=== PATIENT | male | born 1950 | race Caucasian/White ===

== ENCOUNTER 2019-10-23 08:24 | Day surgery (SDC) | payer MEDICARE ==
[~2019-10-23] VITALS: Ht 177.8 cm; Wt 210.0 kg
[2019-10-23] MEDS ORDERED: ASPI81CH (09:10)
[2019-10-23] MEDS ORDERED: Prinivil10 MG PO (09:11)
[2019-10-23] MEDS ORDERED: AMLO10 PO (09:12)
[2019-10-23] MEDS ORDERED: ATOR80 PO (09:12)
[2019-10-23] MEDS ORDERED: Nitrostat0.3 MG SL (09:13)
[2019-10-23] MEDS ORDERED: OMEP20ER PO (09:13)
--- NOTE | 2019-10-23 10:01 | NUR ---
10/23/19 1001 Maranda Le DISCHARGE INSTRUCTIONS REVIEWED WITH PT AND SPOUSE. PT RESTING COMFORTABLY IN BED WITH CALL LIGHT IN REACH AND AT BEDSIDE.
== END 2019-10-23 12:45 | disposition home or self-care (01) ==
LOC: ORSCSDS 08:24
PROVIDERS: Orthopaedic Surgery
PROC: 0RBJ4ZZ Excision of Right Shoulder Joint, Percutaneous Endoscopic Approach (ICD-10-PCS; principal; 2019-10-23 09:45)
PROC: 0LQ14ZZ Repair Right Shoulder Tendon, Percutaneous Endoscopic Approach (ICD-10-PCS; principal; 2019-10-23 09:45)
PROC: 0LS14ZZ Reposition Right Shoulder Tendon, Percutaneous Endoscopic Approach (ICD-10-PCS; principal; 2019-10-23 09:45)
DX: M75.41 Impingement syndrome of right shoulder (principal); M75.121 Complete rotator cuff tear or rupture of right shoulder, not specified as traumatic; M75.21 Bicipital tendinitis, right shoulder; I10 Essential (primary) hypertension; E78.2 Mixed hyperlipidemia; I25.10 Atherosclerotic heart disease of native coronary artery without angina pectoris; K21.9 Gastro-esophageal reflux disease without esophagitis; Z79.899 Other long term (current) drug therapy; Z79.82 Long term (current) use of aspirin
CPT/HCPCS: C1713; J0171; J0696; J0735; J1100; J1885; J2250; J2405; J2704; J2795; J3010

== ENCOUNTER 2020-01-23 13:39 | Day surgery (SDC) | payer MEDICARE ==
[~2020-01-23] VITALS: Ht 177.8 cm; Wt 80.1 kg
[~2020-01-23 13:39] MED LIST: AMLO10 PO; ASPI81CH; ATOR80 PO; FURO40 PO; Nitrostat0.3 MG SL; OMEP20ER PO; Prinivil10 MG PO
== END 2020-01-23 16:40 | disposition home or self-care (01) ==
LOC: ORSCSDS 13:39
PROVIDERS: Internal Medicine Gastroenterology
PROC: 0DJ08ZZ Inspection of Upper Intestinal Tract, Via Natural or Artificial Opening Endoscopic (ICD-10-PCS; principal; 2020-01-23 15:00)
DX: I85.00 Esophageal varices without bleeding (principal); K76.6 Portal hypertension; K31.89 Other diseases of stomach and duodenum; K74.60 Unspecified cirrhosis of liver; R63.4 Abnormal weight loss; R18.8 Other ascites; R68.81 Early satiety; I10 Essential (primary) hypertension; E78.5 Hyperlipidemia, unspecified; Z95.1 Presence of aortocoronary bypass graft; Z87.891 Personal history of nicotine dependence; Z79.82 Long term (current) use of aspirin; Z79.899 Other long term (current) drug therapy
CPT/HCPCS: J2704; J7120

== ENCOUNTER 2020-11-04 00:31 | Day surgery (SDC) | payer MEDICARE ==
[~2020-11-04 00:31] MED LIST changes: +ALDACTONE100 MG PO; +ATOR20 PO; +CEPH500 PO; +CONSTULOSE10 GM/151; +LACT10SY PO; +NITR.4SL SL; +Norco 5-325 Ta1 EACH PO; +Percocet 5-3251 EACH PO; +Spironolactone100 MG PO
[2020-11-04 15:24] LABS: Albumin, Body Fluid 0.5 g/dL
[2020-11-04] MEDS ORDERED: OMEP20ER PO (15:50)
[2020-11-04] MEDS ORDERED: SPIR50 PO (15:51)
== END 2020-11-04 16:04 | disposition home or self-care (01) ==
LOC: US 00:31 → ATC 00:31 → US 14:00 → ATC 16:04 → US 11-05 10:00
PROVIDERS: Internal Medicine Gastroenterology
DX: R18.8 Other ascites (principal); K74.69 Other cirrhosis of liver; K75.81 Nonalcoholic steatohepatitis (NASH); I85.10 Secondary esophageal varices without bleeding; K76.6 Portal hypertension; K31.89 Other diseases of stomach and duodenum; I25.10 Atherosclerotic heart disease of native coronary artery without angina pectoris; E78.5 Hyperlipidemia, unspecified; I10 Essential (primary) hypertension; I25.2 Old myocardial infarction; Z95.1 Presence of aortocoronary bypass graft; Z95.5 Presence of coronary angioplasty implant and graft; Z79.82 Long term (current) use of aspirin
CPT/HCPCS: 49083; 82042; 87070; 87205; 96365; P9041; P9046

== ENCOUNTER 2020-12-22 08:45 | Emergency (ER) | payer MEDICARE ==
[~2020-12-22] VITALS: Ht 177.8 cm; Wt 79.4 kg
[2020-12-22 09:11] LABS: Source, Urine Clean Catch
[2020-12-22 09:15] LABS: BASOPHILS ABSOLUTE AUTO 0.07 K/mm3 (0.00-0.23); BASOPHILS PERCENT AUTO 1 % (0-2); EOSINOPHILS ABSOLUTE AUTO 0.14 K/mm3 (0.00-0.68); EOSINOPHILS PERCENT AUTO 2 % (0-6); Hematocrit 33.8 % (37.0-53.0); Hemoglobin 11.9 g/dL (13.5-17.5); IMMATURE GRAN ABSOLUTE AUTO 0.04 K/mm3 (0.00-0.10); IMMATURE GRAN PERCENT AUTO 1 % (0-1); LYMPHOCYTES ABSOLUTE AUTO 1.17 K/mm3 (0.84-5.20); LYMPHOCYTES PERCENT AUTO 17 % (21-46); MONOCYTES ABSOLUTE AUTO 0.87 K/mm3 (0.16-1.47); MONOCYTES PERCENT AUTO 12 % (4-13); Mean Corpuscular HGB 34.8 pg (26.0-34.0); Mean Corpuscular HGB Conc 35.2 g/dL (31.5-36.5); Mean Corpuscular Volume 99 fL (80-100); Mean Platelet Volume 8.1 fL (9.1-12.4); NEUTROPHILS ABSOLUTE AUTO 4.76 K/mm3 (1.96-9.15); NEUTROPHILS PERCENT AUTO 68 % (41-73); Platelet Count 188 K/mm3 (150-400); RDW Coefficient Variation 16.3 % (11.7-14.2); RDW Standard Deviation 59.6 fL (35.1-46.3); Red Blood Cell Count 3.42 M/mm3 (4.30-5.90); White Blood Cell Count 7.05 K/mm3 (4.00-11.30)
[2020-12-22 09:17] LABS: Appearance, Urine Clear (Clear); Bilirubin, Urine Neg (Neg); Blood, Urine 5+ (Neg); Color, Urine Yellow (P-Yellow); Glucose Qualitative, Urine Neg (Neg); Ketones, Urine Neg (Neg); Leukocyte Esterase, Urine Neg (Neg); Nitrite, Urine Neg (Neg); Protein, Urine Neg (Neg); Specific Gravity, Urine 1.015 (1.003-1.022); Urobilinogen, Urine 1+ (Normal)
[2020-12-22 09:27] LABS: Bacteria Rare /hpf; Red Blood Cells, Urine TNTC /hpf (0-2); Squamous Epithelial Cells Rare /hpf (Few); White Blood Cells, Urine 0-2 /hpf (0-5)
[2020-12-22 09:28] LABS: Calcium Oxalate Crystals Few /hpf
[2020-12-22 09:35] LABS: Alanine Aminotransfer (ALT/SGP 42 U/L (12-78); Albumin, Blood 2.1 g/dL (3.4-5.0); Albumin/Globulin Ratio 0.4 (0.8-1.8); Alk Phos 241 U/L (50-136); Anion Gap 10 mmol/L (6-16); Aspartate Aminotrans (AST/SGOT 59 U/L (12-37); Blood Urea Nitrogen 18 mg/dL (8-24); Bun/Creatinine Ratio 15.4 (12.0-20.0); CO2, Blood 20 mmol/L (21-32); Calcium, Blood 7.9 mg/dL (8.5-10.1); Chloride, Blood 97 mmol/L (98-108); Creatinine, Blood 1.17 mg/dL (0.60-1.20); Globulin, Blood 4.7 g/dL (2.2-4.0); Glomerular Filtration Rate >60 (60-); Glucose, Blood 116 mg/dL (70-99); Potassium, Blood 3.5 mmol/L (3.5-5.5); Sodium, Blood 127 mmol/L (136-145); Total Protein, Blood 6.8 g/dL (6.4-8.2)
[2020-12-22 12:56] LABS: International Normalized Ratio 1.33
== END 2020-12-22 11:46 | disposition home or self-care (01) ==
LOC: ER 08:45
PROVIDERS: Emergency Medicine
DX: R31.9 Hematuria, unspecified (principal); K74.60 Unspecified cirrhosis of liver
CPT/HCPCS: 36415; 74176; 80053; 81001; 83690; 85025; 85610; 99284-25

== ENCOUNTER 2020-12-31 14:47 | Day surgery (SDC) | payer MEDICARE | END 2020-12-31 16:45 | disposition home or self-care (01) | LOC: ATC 14:47 → US 01-06 14:00 | DX: K74.69 Other cirrhosis of liver (principal); R18.8 Other ascites; I11.9 Hypertensive heart disease without heart failure; I25.2 Old myocardial infarction; K76.6 Portal hypertension; K31.89 Other diseases of stomach and duodenum; I85.10 Secondary esophageal varices without bleeding; E78.5 Hyperlipidemia, unspecified; K59.09 Other constipation; Z88.6 Allergy status to analgesic agent; Z86.010 Personal history of colon polyps | CPT/HCPCS: 49083; 96365; 96366; P9041; P9046 ==

== ENCOUNTER 2021-01-16 10:32 | Inpatient (IN) | payer MEDICARE ==
[~2021-01-16] VITALS: Ht 180.3 cm; Wt 78.2 kg
[~2021-01-16 10:32] MED LIST changes: +SPIR50 PO
[2021-01-16 11:08] LABS: BASOPHILS ABSOLUTE AUTO 0.03 K/mm3 (0.00-0.23); BASOPHILS PERCENT AUTO 0 % (0-2); Hematocrit 32.4 % (37.0-53.0); Hemoglobin 11.6 g/dL (13.5-17.5); LYMPHOCYTES ABSOLUTE AUTO 0.71 K/mm3 (0.84-5.20); LYMPHOCYTES PERCENT AUTO 5 % (21-46); MONOCYTES ABSOLUTE AUTO 0.68 K/mm3 (0.16-1.47); MONOCYTES PERCENT AUTO 5 % (4-13); Mean Corpuscular HGB 35.8 pg (26.0-34.0); Mean Corpuscular HGB Conc 35.8 g/dL (31.5-36.5); Mean Corpuscular Volume 100 fL (80-100); Mean Platelet Volume 8.9 fL (9.1-12.4); Platelet Count 153 K/mm3 (150-400); RDW Coefficient Variation 16.9 % (11.7-14.2); RDW Standard Deviation 61.7 fL (35.1-46.3); Red Blood Cell Count 3.24 M/mm3 (4.30-5.90)
[2021-01-16 11:10] LABS: EOSINOPHILS ABSOLUTE AUTO 0.03 K/mm3 (0.00-0.68); EOSINOPHILS PERCENT AUTO 0 % (0-6); IMMATURE GRAN ABSOLUTE AUTO 0.14 K/mm3 (0.00-0.10); IMMATURE GRAN PERCENT AUTO 1 % (0-1); NEUTROPHILS ABSOLUTE AUTO 12.91 K/mm3 (1.96-9.15); NEUTROPHILS PERCENT AUTO 89 % (41-73)
[2021-01-16 11:19] LABS: Albumin, Blood 2.1 g/dL (3.4-5.0); Albumin/Globulin Ratio 0.5 (0.8-1.8); Bilirubin, Total 5.1 mg/dL (0.1-1.0); Calcium, Blood 8.6 mg/dL (8.5-10.1); Creatinine, Blood 1.54 mg/dL (0.60-1.20); Globulin, Blood 4.4 g/dL (2.2-4.0); Potassium, Blood 4.4 mmol/L (3.5-5.5); Total Protein, Blood 6.5 g/dL (6.4-8.2)
[2021-01-16 12:38] LABS: Automated BF WBC Count 1.262 K/mm3 (0-999); Body Fluid WBC Count 1262 /mm3 (0-999)
[2021-01-16 13:07] LABS: RBC Count, Body Fluid 186 /mm3 (0-0)
[2021-01-16 13:14] LABS: Appearance, Body Fluid Hazy (Clear); Color, Body Fluid Yellow (None-Yellow); Total Cell Count, Body Fluid 100
[2021-01-16 13:47] LABS: Troponin I 0.03 ng/mL (0.000-0.040)
[2021-01-16 13:50] LABS: Thyroid Stimulating Hormone 2.2 uIU/mL (0.360-4.800)
[2021-01-16 14:00] LABS: Source, Urine Voided
[2021-01-16] MEDS ORDERED: ATOR40TA PO (14:10)
[2021-01-16 14:30] LABS: Appearance, Urine Clear (Clear); Blood, Urine Neg (Neg); Color, Urine Amber (P-Yellow); Glucose Qualitative, Urine Neg (Neg); Ketones, Urine Neg (Neg); Leukocyte Esterase, Urine 1+ (Neg); Nitrite, Urine Neg (Neg); Protein, Urine Neg (Neg); Urobilinogen, Urine 1+ (Normal)
[2021-01-16 14:43] LABS: Bilirubin, Urine 1+ (Neg)
[2021-01-16 14:44] LABS: Red Blood Cells, Urine 0-2 /hpf (0-2)
[2021-01-16 14:45] LABS: Bacteria Rare /hpf; Mucus Light (0-Heavy); Squamous Epithelial Cells Rare /hpf (Few)
[2021-01-16 15:22] LABS: International Normalized Ratio 1.56; Prothrombin Time Results 16.4 Sec (9.7-11.5)
[2021-01-16 15:51] LABS: Albumin, Body Fluid 0.4 g/dL
[2021-01-16 15:52] LABS: Lactate Dehydrogenase, Body Fl 54 U/L
--- NOTE | 2021-01-16 17:08 | NUR ---
Pt arrived from the ER with at the bedside. He is A/o x 4 with no c/o pain or discomfort. Pt reports that he came in for a paracentesis today and they took off 6.2 L. The pt is jaundiced and his abdomen is moderately distended. IV fluids started as ordered and pt was ordered a tray. Pt verbalizes an understanding of the use of the call light and is able to do a return demo. Pt and were able to answer HX questions and med rec was completed. Pt is resting comfortably in bed and able to make his needs known.
[2021-01-16 18:19] LABS: Influenza A, PCR NEGATIVE (NEGATIVE); Influenza B, PCR NEGATIVE (NEGATIVE); Resp Syncytial Virus, PCR NEGATIVE (NEGATIVE); SARS-Cov-2 (COVID-19) PCR, MMC NEGATIVE (NEGATIVE)
--- NOTE | 2021-01-17 02:50 | NUR ---
PT UPDATE PT HAS HAD SOFT BP THIS SHIFT. MOST RECENT BP WAS 81/42, MAP (59). PT HAS NS INFUSING AND JUST COMPLETED 2 INFUSIONS OF ALBUMIN. CALL PLACED TO MD DEL CID. MD DEL CID W/ ORDERS FOR 10 MG MIDODRINE PO AND COMPRESSION STOCKINGS/SCDS.
[2021-01-17 04:10] LABS: BASOPHILS ABSOLUTE AUTO 0.01 K/mm3 (0.00-0.23); BASOPHILS PERCENT AUTO 0 % (0-2); EOSINOPHILS ABSOLUTE AUTO 0.11 K/mm3 (0.00-0.68); EOSINOPHILS PERCENT AUTO 1 % (0-6); Hematocrit 23.3 % (37.0-53.0); Hemoglobin 8.5 g/dL (13.5-17.5); IMMATURE GRAN ABSOLUTE AUTO 0.05 K/mm3 (0.00-0.10); IMMATURE GRAN PERCENT AUTO 1 % (0-1); LYMPHOCYTES ABSOLUTE AUTO 1.03 K/mm3 (0.84-5.20); LYMPHOCYTES PERCENT AUTO 11 % (21-46); MONOCYTES ABSOLUTE AUTO 0.86 K/mm3 (0.16-1.47); MONOCYTES PERCENT AUTO 10 % (4-13); Mean Corpuscular HGB Conc 36.5 g/dL (31.5-36.5); Mean Corpuscular Volume 96 fL (80-100); NEUTROPHILS ABSOLUTE AUTO 6.97 K/mm3 (1.96-9.15); NEUTROPHILS PERCENT AUTO 77 % (41-73); Platelet Count 115 K/mm3 (150-400); RDW Coefficient Variation 16.5 % (11.7-14.2); RDW Standard Deviation 57.1 fL (35.1-46.3); Red Blood Cell Count 2.43 M/mm3 (4.30-5.90); White Blood Cell Count 9.03 K/mm3 (4.00-11.30)
[2021-01-17 04:38] LABS: Albumin, Blood 2.7 g/dL (3.4-5.0); Bilirubin, Total 3.4 mg/dL (0.1-1.0); Bun/Creatinine Ratio 27.8 (12.0-20.0); Calcium, Blood 8.1 mg/dL (8.5-10.1); Creatinine, Blood 1.44 mg/dL (0.60-1.20); Globulin, Blood 2.8 g/dL (2.2-4.0); Potassium, Blood 4.1 mmol/L (3.5-5.5); Total Protein, Blood 5.5 g/dL (6.4-8.2)
--- NOTE | 2021-01-17 06:31 | NUR ---
PT UPDATE PT BP CONTINUES TO BE LOW AND HGB LAB WENT FROM 11.6 (01/16) TO 8.5 (01/17). CALL PLACED TO MD DEL CID. MD DEL CID W/ ORDERS FOR 500ML BOLUS OF NS WELL A REPEAT HGB.
--- NOTE | 2021-01-17 06:33 | NUR ---
SHIFT SUMMARY PT A&OX4. SP02>92% ON RA. TELEMETRY READS SR W/ BBB AND PACS. HR 70'S-80'S. BP SOFT THIS SHIFT, SEE PREVIOUS NOTES. PT CONTINENT, 1 PERSON ASSIST TO BATHROOM. PT C/O OF BACK PAIN, GIVEN HEATING PAD W/ SUCCESSFUL RELIEF. PT WORE SCDS DURING SHIFT. NS INFUSED PER EMAR. PT SKIN CONTINUES TO APPEAR JAUNDICE. PT DID NOT SLEEP THIS SHIFT UNTIL ABOUT 0500. CALL LIGHT IN REACH. WILL GIVE REPORT TO ONCOMING NURSE.
--- NOTE | 2021-01-17 08:00 | NUR ---
pt laying in bed with eyes closed, wakes easily, denies complaints, states he slept some last night, denies pain or dizziness, lungs are clear dim in bases, resp even and unlabored, no cough noted, hrr, tele in place running sr at 68bpm, no edema noted, ppp+2, cap refill <3sec, vs stable, afebrile, iv sites are clear and patent, btx4, abd round soft nontender, voids via urinal, skin jaundiced but intact, [place], call light in reach. b/p is running low, is chronically low. Dr. castañeda.
--- NOTE | 2021-01-17 18:04 | NUR ---
Dr. Luo in to see pt. will give another albumin tonight, pt doing ok, was able to ambulate to the bathroom. in to visit, call light in reach.
[2021-01-18 04:11] LABS: Hematocrit 24.6 % (37.0-53.0); Hemoglobin 9.1 g/dL (13.5-17.5); Mean Corpuscular HGB 35.8 pg (26.0-34.0); Mean Corpuscular Volume 97 fL (80-100); Mean Platelet Volume 8.9 fL (9.1-12.4); Platelet Count 113 K/mm3 (150-400); RDW Coefficient Variation 16.7 % (11.7-14.2); RDW Standard Deviation 58.8 fL (35.1-46.3); Red Blood Cell Count 2.54 M/mm3 (4.30-5.90); White Blood Cell Count 5.75 K/mm3 (4.00-11.30)
[2021-01-18 04:26] LABS: International Normalized Ratio 1.78; Prothrombin Time Results 18.6 Sec (9.7-11.5)
[2021-01-18 04:29] LABS: Alanine Aminotransfer (ALT/SGP 33 U/L (12-78); Albumin, Blood 2.7 g/dL (3.4-5.0); Alk Phos 135 U/L (50-136); Anion Gap 9 mmol/L (6-16); Aspartate Aminotrans (AST/SGOT 28 U/L (12-37); Bilirubin, Total 2.3 mg/dL (0.1-1.0); Blood Urea Nitrogen 36 mg/dL (8-24); Bun/Creatinine Ratio 28.8 (12.0-20.0); CO2, Blood 20 mmol/L (21-32); Calcium, Blood 8.2 mg/dL (8.5-10.1); Chloride, Blood 99 mmol/L (98-108); Creatinine, Blood 1.25 mg/dL (0.60-1.20); Globulin, Blood 2.7 g/dL (2.2-4.0); Glomerular Filtration Rate >60 (60-); Glucose, Blood 79 mg/dL (70-99); Potassium, Blood 4.2 mmol/L (3.5-5.5); Sodium, Blood 128 mmol/L (136-145); Total Protein, Blood 5.4 g/dL (6.4-8.2)
--- NOTE | 2021-01-18 05:44 | NUR ---
SHIFT SUMMARY NO ACUTE CHANGES THIS SHIFT. PT A&OX4. SP02>92% ON RA. TELEMETRY READS SR W/ BBB AND PAC'S. HR 70'S-80'S. PT AMBULATED TO BATHROOM MULTIPLE TIMES THIS SHIFT TO VOID. PT DENIES PAIN. NS INFUSED PER EMAR. ABX INFUSED PER EMAR. SCD'S WORN THIS SHIFT. PT REPOSITIONS SELF IN BED. CALL LIGHT IN REACH. WILL GIVE REPORT TO ONCOMING NURSE.
--- NOTE | 2021-01-18 07:47 | NUR ---
pt up to bathroom this am, gait noted to bed steady, a/ox3, pleasant and cooperative with care, follows commands well, denies pain, states he slept ok, lungs are clear dim in bases, resp even and unlabord, on r/a, reports an occ prod cough but swallows it, hrr, tele in place running sr to st per monitor, see strip, no edema noted, ppp+1, cap refill <3sec, vs stable, afebrile, iv sites are clear and patent, infusing ns at 75mls/hr, btx4, hypoactive, abd a bit firmer than yesterday, reports no bm in two days and normally goes twice a day, will address, voids without diff, skin c/w/d, [place], call light in reach.
--- NOTE | 2021-01-18 11:40 | NUR ---
pt has been changed to medical floor, report was given, pt taken via wheelchair with supervisor bottle machines in attendence. all belongings went with pt.
--- NOTE | 2021-01-18 16:34 | NUR ---
SHIFT SUMMARY/TRANSFER NOTE PT TRANSFERRED FROM PCU TO MEDICAL FLOOR AT APPROX 1130AM. PT A&Ox4. PLEASANT AND COOPERATIVE WITH CARE. TELE DC'D UPON ARRIVAL TO FLOOR. NS RUNNING AT 75ML/HR. PT WORKED WITH PHYSICAL THERAPY TODAY. SBA WITH FWW TO BATHROOM. PT'S IN ROOM TODAY FOR VISIT, UPDATED ON PLAN OF CARE. CURRENT PLAN IS TO DC TOMORROW TO HOME. VITALS REVIEWED. PT DENIES ANY NEEDS AT THIS TIME.
--- NOTE | 2021-01-19 05:42 | NUR ---
SHIFT SUMMARY NO ACUTE CHANGES TO REPORT THIS SHIFT. PT HAS RESTED MOST OF THE NIGHT. IV ANTIBITOICS CONTINUED ORDERED. PT HAS BEEN AMBULATING WELL WITH 1 PA. HE DENIES PAIN OR NEEDS WHEN ASKED. HE HAS SLEPT ON AND T/O THE SHIFT. PLAN IS FOR DISCHARGE TODAY. BED IN LOWEST POSITION, CALL LIGHT WITHIN REACH.
[2021-01-19 06:05] LABS: Anion Gap 8 mmol/L (6-16); Blood Urea Nitrogen 28 mg/dL (8-24); Bun/Creatinine Ratio 25.7 (12.0-20.0); CO2, Blood 20 mmol/L (21-32); Calcium, Blood 8.1 mg/dL (8.5-10.1); Chloride, Blood 104 mmol/L (98-108); Creatinine, Blood 1.09 mg/dL (0.60-1.20); Glomerular Filtration Rate >60 (60-); Glucose, Blood 86 mg/dL (70-99); Potassium, Blood 4.2 mmol/L (3.5-5.5); Sodium, Blood 132 mmol/L (136-145)
--- NOTE | 2021-01-19 19:19 | NUR ---
SUMMARY- PT A/O X3, JOVIAL IN GOOD SPIRITS. USES CALL LIGHT AND KNOWS LIMITS. AMBULATES SBA TO BATHROOM. NO BM SINCE ADMIT 5/ DESPITS DAILY MIRILAX AND LACTALOSE. TOLERATING FOOD AND FLUIDS. CONT WITH ASCITES. AT BEDSIDE 2-3 HRS THIS AFTERNOON. REPORTED TO NIGHTS
--- NOTE | 2021-01-20 04:20 | NUR ---
SHIFT SUMMARY PT PLEASANT AND COOPERATIVE. PT AWAKE MUCH OF THE NIGHT. RESTING IN BED. PT STATES THAT AT BASELINE HE DOES NOT SLEEP WELL. ABD DISTENDED, ALSO CHRONIC. SKIN SLIGHTLY JAUNDICED. PT DOES BECOME INTERMITTENTLY MILDLY CONFUSED, ATTEMPTING TO USE THE CALL LIGHT A TELEPHONE AT ONE POINT THIS EVENING. PLAN FOR D/C TODAY AFTER FINAL DOSE OF IV ANTIBIOTICS. PT CONTINUES TO BE ON THE HYPOTENSIVE SIDE WITH SBP IN THE 90'S-LOW 100'S. PT HS SCHEDULED MIDODRINE FOR HYPOTENSION. OTHERWISE, VSS. WILL CONTINUE TO MONITOR AND REPORT TO DAY RN.
[2021-01-20 05:17] LABS: Anion Gap 8 mmol/L (6-16); Blood Urea Nitrogen 23 mg/dL (8-24); Bun/Creatinine Ratio 23.2 (12.0-20.0); CO2, Blood 19 mmol/L (21-32); Chloride, Blood 107 mmol/L (98-108); Creatinine, Blood 0.99 mg/dL (0.60-1.20); Glomerular Filtration Rate >60 (60-); Glucose, Blood 90 mg/dL (70-99); Potassium, Blood 4.2 mmol/L (3.5-5.5); Sodium, Blood 134 mmol/L (136-145)
[2021-01-20] MEDS ORDERED: TAMS.4ER PO (13:15)
[2021-01-20] MEDS ORDERED: MIDO5 PO (13:16)
[2021-01-20] MEDS ORDERED: BACTRIM DS TAB1 EAC1 PO (13:17)
--- NOTE | 2021-01-20 15:41 | NUR ---
PATIENT IS DISCHARGING NOW. HIS WILL DRIVE HIME HOME. THE FRONT MAKER IS PUSHING HIM OUT TO THE PATIENT ENTERANCE VIA WHEELCHAIR.
== END 2021-01-20 15:47 | disposition home health service (06) | DRG 871 ==
LOC: ER 10:32 → PCU 15:00 → MEDS 01-18 11:33
PROVIDERS: Emergency Medicine; Internal Medicine Gastroenterology; Nurse Practitioner Acute Care; ADMIT Internal Medicine
PROC: 0W9G3ZZ Drainage of Peritoneal Cavity, Percutaneous Approach (ICD-10-PCS; principal; 2021-01-16)
DX: A41.59 Other Gram-negative sepsis (principal); K65.2 Spontaneous bacterial peritonitis; E87.1 Hypo-osmolality and hyponatremia; N17.9 Acute kidney failure, unspecified; R18.8 Other ascites; I85.10 Secondary esophageal varices without bleeding; K76.6 Portal hypertension; R65.20 Severe sepsis without septic shock; K75.81 Nonalcoholic steatohepatitis (NASH); I25.10 Atherosclerotic heart disease of native coronary artery without angina pectoris; Z95.1 Presence of aortocoronary bypass graft; Z66 Do not resuscitate; I10 Essential (primary) hypertension; I25.2 Old myocardial infarction; K59.09 Other constipation; I95.89 Other hypotension
CPT/HCPCS: 0241U; 36415; 49083; 71045; 80048; 80053; 81001; 82042; 82140; 82550; 83605; 83615; 83690; 84443; 84484; 85018; 85025; 85027; 85610; 87040; 87070; 87077; 87086; 87186; 87205; 88108; 88305; 89051; 93005; 93010; 96361-59; 96365-59; 96367-59; 97110; 97112; 97116; 97162; 97166; 97530; 99285-25; A9270; J0696; J2543; J7030; J7040; P9041; P9046

== ENCOUNTER 2021-01-22 19:54 | Observation (INO) | payer MEDICARE ==
[~2021-01-22] VITALS: Ht 177.8 cm; Wt 83.5 kg
[~2021-01-22 19:54] MED LIST changes: +ATOR40TA PO; +BACTRIM DS TAB1 EAC1 PO; +MIDO5 PO; +TAMS.4ER PO
[2021-01-22 20:54] LABS: BASOPHILS ABSOLUTE AUTO 0.05 K/mm3 (0.00-0.23); BASOPHILS PERCENT AUTO 1 % (0-2); EOSINOPHILS ABSOLUTE AUTO 0.19 K/mm3 (0.00-0.68); EOSINOPHILS PERCENT AUTO 3 % (0-6); Hematocrit 28.7 % (37.0-53.0); Hemoglobin 10.1 g/dL (13.5-17.5); IMMATURE GRAN ABSOLUTE AUTO 0.08 K/mm3 (0.00-0.10); IMMATURE GRAN PERCENT AUTO 1 % (0-1); LYMPHOCYTES ABSOLUTE AUTO 0.92 K/mm3 (0.84-5.20); LYMPHOCYTES PERCENT AUTO 16 % (21-46); MONOCYTES ABSOLUTE AUTO 0.73 K/mm3 (0.16-1.47); MONOCYTES PERCENT AUTO 13 % (4-13); Mean Corpuscular HGB 35.2 pg (26.0-34.0); Mean Corpuscular HGB Conc 35.2 g/dL (31.5-36.5); Mean Corpuscular Volume 100 fL (80-100); Mean Platelet Volume 8.9 fL (9.1-12.4); NEUTROPHILS ABSOLUTE AUTO 3.68 K/mm3 (1.96-9.15); NEUTROPHILS PERCENT AUTO 65 % (41-73); Platelet Count 137 K/mm3 (150-400); RDW Coefficient Variation 17.1 % (11.7-14.2); Red Blood Cell Count 2.87 M/mm3 (4.30-5.90); White Blood Cell Count 5.65 K/mm3 (4.00-11.30)
[2021-01-22 21:05] LABS: Alanine Aminotransfer (ALT/SGP 48 U/L (12-78); Albumin, Blood 2.8 g/dL (3.4-5.0); Albumin/Globulin Ratio 0.8 (0.8-1.8); Alk Phos 181 U/L (50-136); Anion Gap 9 mmol/L (6-16); Aspartate Aminotrans (AST/SGOT 50 U/L (12-37); Bilirubin, Total 2.9 mg/dL (0.1-1.0); Blood Urea Nitrogen 22 mg/dL (8-24); Bun/Creatinine Ratio 18.5 (12.0-20.0); CO2, Blood 17 mmol/L (21-32); Calcium, Blood 7.9 mg/dL (8.5-10.1); Chloride, Blood 102 mmol/L (98-108); Creatinine, Blood 1.19 mg/dL (0.60-1.20); Globulin, Blood 3.6 g/dL (2.2-4.0); Glomerular Filtration Rate >60 (60-); Glucose, Blood 91 mg/dL (70-99); Potassium, Blood 4.2 mmol/L (3.5-5.5); Sodium, Blood 128 mmol/L (136-145); Total Protein, Blood 6.4 g/dL (6.4-8.2)
[2021-01-22] MEDS ORDERED: TAMSULOSIN HCL0.4 M1 PO (22:27)
[2021-01-22] MEDS ORDERED: MIDODRINE 5 MG (22:27)
[2021-01-22] MEDS ORDERED: SULFAMETHOXAZO1 EAC1 PO (22:28)
[2021-01-22] MEDS ORDERED: FUROSEMIDE40 MG PO (22:28)
[2021-01-22] MEDS ORDERED: ATORVASTATIN 40MG (22:28)
[2021-01-22] MEDS ORDERED: SPIRONOLACTONE100 M3 PO (22:29)
[2021-01-22] MEDS ORDERED: CONSTULOSE10 GM/155 PR (22:29)
[2021-01-22 23:48] LABS: Source, Urine Clean Catch
[2021-01-22 23:50] LABS: Blood, Urine 4+ (Neg); Glucose Qualitative, Urine Neg (Neg); Ketones, Urine 1+ (Neg); Leukocyte Esterase, Urine 1+ (Neg); Nitrite, Urine Neg (Neg); Protein, Urine 1+ (Neg); Specific Gravity, Urine 1.025 (1.003-1.022); Urobilinogen, Urine 2+ (Normal)
[2021-01-22 23:55] LABS: Appearance, Urine Clear (Clear); Bilirubin, Urine 1+ (Neg); Color, Urine Amber (P-Yellow)
[2021-01-22 23:56] LABS: Amorphous Light (0-Heavy); Bacteria Mod /hpf; Hyaline Casts 25-50 /lpf (0-2); Mucus Light (0-Heavy); Red Blood Cells, Urine 50-100 /hpf (0-2); Squamous Epithelial Cells Few /hpf (Few)
[2021-01-23 00:22] LABS: Lactate Dehydrogenase (Ld),Bld 204 U/L (100-240)
[2021-01-23 02:10] LABS: BASOPHILS ABSOLUTE AUTO 0.05 K/mm3 (0.00-0.23); BASOPHILS PERCENT AUTO 1 % (0-2); EOSINOPHILS PERCENT AUTO 4 % (0-6); Hematocrit 26.1 % (37.0-53.0); Hemoglobin 9.3 g/dL (13.5-17.5); IMMATURE GRAN ABSOLUTE AUTO 0.06 K/mm3 (0.00-0.10); IMMATURE GRAN PERCENT AUTO 1 % (0-1); LYMPHOCYTES ABSOLUTE AUTO 0.86 K/mm3 (0.84-5.20); LYMPHOCYTES PERCENT AUTO 17 % (21-46); MONOCYTES ABSOLUTE AUTO 0.75 K/mm3 (0.16-1.47); MONOCYTES PERCENT AUTO 15 % (4-13); Mean Corpuscular HGB 35.4 pg (26.0-34.0); Mean Corpuscular HGB Conc 35.6 g/dL (31.5-36.5); Mean Corpuscular Volume 99 fL (80-100); Mean Platelet Volume 8.6 fL (9.1-12.4); NEUTROPHILS ABSOLUTE AUTO 3.22 K/mm3 (1.96-9.15); NEUTROPHILS PERCENT AUTO 63 % (41-73); Platelet Count 113 K/mm3 (150-400); RDW Coefficient Variation 17.3 % (11.7-14.2); RDW Standard Deviation 62.8 fL (35.1-46.3); Red Blood Cell Count 2.63 M/mm3 (4.30-5.90); White Blood Cell Count 5.14 K/mm3 (4.00-11.30)
--- NOTE | 2021-01-23 02:10 | NUR ---
PT ADMITTED TO ROOM 224. A/O X4. ORIENTED TO ROOM AND CALL LIGHT. PT ONLY COMPLAINT AT THIS TIME IS OF SWOLLEN ABD AND SOB WITH EXERTION R/T ABD DISTENTION. PT UNSURE OF SOME HOME MEDS; STATES HIS CAN BRING IN HIS HOME MED LIST LATER TODAY. OFFERED PM CARE. SCDS APPLIED. MEPLILEX PLACED ON COCCYX. PT RESTING AT THIS TIME, CALL LIGHT IN REACH.
[2021-01-23 02:28] LABS: Albumin, Blood 2.5 g/dL (3.4-5.0); Albumin/Globulin Ratio 0.8 (0.8-1.8); Bilirubin, Total 2.4 mg/dL (0.1-1.0); Bun/Creatinine Ratio 18.3 (12.0-20.0); Calcium, Blood 7.6 mg/dL (8.5-10.1); Creatinine, Blood 1.26 mg/dL (0.60-1.20); Globulin, Blood 3.3 g/dL (2.2-4.0); Potassium, Blood 4.2 mmol/L (3.5-5.5); Total Protein, Blood 5.8 g/dL (6.4-8.2)
--- NOTE | 2021-01-23 04:13 | NUR ---
SHIFT SUMMARY PT ADMITTED THIS SHIFT FOR BACTERIAL PEROTINITIS. PT IS A/O X4. REPORTS SOB WITH EXERTION R/T ABD DISTENTION. ROCEPHIN STARTED THIS SHIFT. PLAN FOR PARACENTESIS TODAY. PT RESTING AT THIS TIME, CALL LIGHT IN REACH.
[2021-01-23 11:24] LABS: Automated BF WBC Count 0.098 K/mm3 (0-999); Body Fluid WBC Count 98 /mm3 (0-999)
[2021-01-23 11:27] LABS: Albumin, Body Fluid 0.5 g/dL
[2021-01-23 11:30] LABS: Glucose, Body Fluid 103 mg/dL
[2021-01-23 11:31] LABS: Lactate Dehydrogenase, Body Fl 50 U/L
[2021-01-23 11:35] LABS: Protein, Body Fluid 1.2 g/dL
[2021-01-23 11:56] LABS: RBC Count, Body Fluid 220 /mm3 (0-0)
[2021-01-23 12:04] LABS: Color, Body Fluid L Yellow (None-Yellow); Total Cell Count, Body Fluid 100
[2021-01-23 12:05] LABS: Appearance, Body Fluid Clear (Clear)
--- NOTE | 2021-01-23 16:00 | NUR ---
CODE STATUS CALL TO DR CARLTON RE: CODE STATUS HER PROGRESS NOTE SAYS DNR. EXPLAINED TO DR CARLTON THAT LAST ADMISSION HE WAS A DNR WELL. ASKED TO CHANGE CODE STATUS & HER RESPONSE WAS NO AND TO TO HAVE PALLIATIVE CARE DISCUSS HIS CODE STATUS W/ HIM. CALL TO PALLIATIVE CARE RN AND SITUATION EXPLAINED.
--- NOTE | 2021-01-23 17:45 | NUR ---
SHIFT SUMMARY PT HAS DONE WELL TODAY. UPBEAT & BREATHING EASIER AFTER PARACENTESIS. TRANSITIONED TO ORAL ABX.
--- NOTE | 2021-01-24 03:57 | NUR ---
SHIFT SUMMARY PT HAS BEEN A/O X4, SBA IN ROOM. TOLERATING DIET W/O NAUSEA OR EMESIS. PT REPORTS VOIDING AND HAVING BM'S. PT HAS DENIED NEED FOR PAIN MEDICATION OVERNIGHT. REPORTS HE FEELS MUCH BETTER AFTER PARACENTESIS YESTERDAY. NO ACUTE CHANGES OVERNIGHT. RESTING IN BED AT THIS TIME, CALL LIGHT IN REACH.
[2021-01-24 04:38] LABS: Albumin, Blood 2.7 g/dL (3.4-5.0); Bilirubin, Total 2.2 mg/dL (0.1-1.0); Bun/Creatinine Ratio 17.9 (12.0-20.0); Calcium, Blood 7.7 mg/dL (8.5-10.1); Creatinine, Blood 1.34 mg/dL (0.60-1.20); Globulin, Blood 2.8 g/dL (2.2-4.0); Potassium, Blood 4.3 mmol/L (3.5-5.5); Total Protein, Blood 5.5 g/dL (6.4-8.2)
[2021-01-24] MEDS ORDERED: LACT10SY PO (17:20)
--- NOTE | 2021-01-24 18:25 | NUR ---
Met with pt bedside. He can track most of conversation get fatigued and tells me to ask his . pt ashed in color and fatigued but affect bright. He is worried he will need to get tapped more and more so he is not so short of breath. Pt states trouble seeping due to dyspnea nd fatigue he has fallen a few times at home. He admits im getting worse. Called his , she i sfrustrated that they have to come to ER to get tapped and they admit him. She states his GI doctor wanted him to wait on getting a pleurex drain. She states their [facility] health nurse wanted to speak with them about hospice. I reviewed hospice care with the and she thought with a plerex it would be good. She states harder to get him the care she needs for him. She is starting to struggle with his care and getting singnificant caregiver stress. He is vet but minimal use of services no advance directive. Did a polst and made him DNR with limited medical care polst given to and copy to medical records. will ask for hospice consult.
--- NOTE | 2021-01-24 18:35 | NUR ---
SHIFT SUMMARY PT A/O X4; PLEASANT AND COOPERATIVE WITH CARE. NO TENDERNESS IN ABD/DYSPNEA/CP. PT DISCHARGED HOME W/. PALLIATIVE CARE TO FOLLOW UP ABOUT HOSPICE OUTPATIENT. PT TO HAVE A PARACENTESIS ON WEDNESDAY. WRITTEN ORDER FAXED TO [facility]. IV AND TELE DC'D WNL.
== END 2021-01-24 18:35 | disposition home or self-care (01) ==
LOC: ER 19:54 → MEDS 19:55 → SURS 19:55
PROVIDERS: Internal Medicine; Physician Assistant; ADMIT Family Medicine
DX: K74.60 Unspecified cirrhosis of liver (principal); R18.8 Other ascites; I95.89 Other hypotension; E87.1 Hypo-osmolality and hyponatremia; K76.6 Portal hypertension; I85.00 Esophageal varices without bleeding; D69.6 Thrombocytopenia, unspecified; I25.10 Atherosclerotic heart disease of native coronary artery without angina pectoris; I10 Essential (primary) hypertension; E78.5 Hyperlipidemia, unspecified; K21.9 Gastro-esophageal reflux disease without esophagitis; R82.90 Unspecified abnormal findings in urine; R79.81 Abnormal blood-gas level; E87.2 Acidosis; Z95.5 Presence of coronary angioplasty implant and graft; Z95.1 Presence of aortocoronary bypass graft; Z87.891 Personal history of nicotine dependence; Z66 Do not resuscitate; Z87.19 Personal history of other diseases of the digestive system
CPT/HCPCS: 36415; 49083; 80053; 81001; 82042; 82945; 83605; 83615; 84157; 85025; 86850; 86900; 86901; 87040; 87070; 87086; 87205; 89051; 93005; 93010; 96365; 99285-25; A9270; G0378; J0696; J7030; J7050; P9046

== ENCOUNTER 2021-01-27 10:35 | Day surgery (SDC) | payer MEDICARE ==
[~2021-01-27 10:35] MED LIST changes: +ATORVASTATIN 40MG; +CONSTULOSE10 GM/155 PR; +FUROSEMIDE40 MG PO; +MIDODRINE 5 MG; +SPIRONOLACTONE100 M3 PO; +SULFAMETHOXAZO1 EAC1 PO; +TAMSULOSIN HCL0.4 M1 PO
== END 2021-01-27 22:51 | disposition home or self-care (01) ==
LOC: US 10:35
DX: K74.60 Unspecified cirrhosis of liver (principal); R18.8 Other ascites
CPT/HCPCS: 49083

== ENCOUNTER 2021-01-30 14:32 | Observation (INO) | payer MEDICARE ==
[~2021-01-30] VITALS: Ht 177.8 cm; Wt 80.7 kg
[2021-01-30 15:01] LABS: BASOPHILS ABSOLUTE AUTO 0.02 K/mm3 (0.00-0.23); BASOPHILS PERCENT AUTO 0 % (0-2); EOSINOPHILS ABSOLUTE AUTO 0.07 K/mm3 (0.00-0.68); EOSINOPHILS PERCENT AUTO 1 % (0-6); Hematocrit 25.2 % (37.0-53.0); IMMATURE GRAN ABSOLUTE AUTO 0.02 K/mm3 (0.00-0.10); IMMATURE GRAN PERCENT AUTO 0 % (0-1); LYMPHOCYTES ABSOLUTE AUTO 0.71 K/mm3 (0.84-5.20); LYMPHOCYTES PERCENT AUTO 12 % (21-46); MONOCYTES ABSOLUTE AUTO 0.88 K/mm3 (0.16-1.47); MONOCYTES PERCENT AUTO 15 % (4-13); Mean Corpuscular HGB 35.7 pg (26.0-34.0); Mean Corpuscular HGB Conc 35.7 g/dL (31.5-36.5); Mean Corpuscular Volume 100 fL (80-100); Mean Platelet Volume 8.9 fL (9.1-12.4); NEUTROPHILS ABSOLUTE AUTO 4.21 K/mm3 (1.96-9.15); NEUTROPHILS PERCENT AUTO 71 % (41-73); Platelet Count 136 K/mm3 (150-400); RDW Standard Deviation 62.3 fL (35.1-46.3); Red Blood Cell Count 2.52 M/mm3 (4.30-5.90); White Blood Cell Count 5.91 K/mm3 (4.00-11.30)
[2021-01-30 15:26] LABS: International Normalized Ratio 1.5; Prothrombin Time Results 15.8 Sec (9.7-11.5)
[2021-01-30 15:27] LABS: C-REACTIVE PROTEIN, EXT RANGE 1.53 mg/dL (0.000-0.300); Troponin I 0.015 ng/mL (0.000-0.040)
[2021-01-30 15:33] LABS: Albumin, Blood 2.4 g/dL (3.4-5.0); Albumin/Globulin Ratio 0.8 (0.8-1.8); Bilirubin, Total 1.9 mg/dL (0.1-1.0); Bun/Creatinine Ratio 21.5 (12.0-20.0); Calcium, Blood 7.5 mg/dL (8.5-10.1); Creatinine, Blood 2.09 mg/dL (0.60-1.20); Potassium, Blood 4.1 mmol/L (3.5-5.5); Total Protein, Blood 5.4 g/dL (6.4-8.2)
--- NOTE | 2021-01-30 16:58 | NUR ---
ED Palliative Care Consult Spoke with Dr Ngo and discussed case. Pt to the ED for hyponatremia. Pt has cirrhosis of the liver. Pt and spouse has discussed potential of hospice coming to the home. Pt resting on gurny upon arrival. Pt is A&OX3. Pt unable to verbalize appropriate year. Listened as spouse Leslie reports Pt is full care. Pt needs assistance with feeding, bathing, dressing, and is now bed bound. Pt use urinal and commode. Leslie reports Pt's homehealth nurse has discussed having hospice come evaluate. Leslie and Pt are in agreement for hospice. Leslie reports Pt receives weekly paracentesis. Educated on hospice philosophy with V/U made by Pt and spouse. Called and spoke with [facility] framing mechanic Martha. Martha reports availability on Wednesday and is requesting PleurX drain be placed before hospice services. Pt and spouse are agreeable for PleurX and are requesting to be admitted overnight. Spoke with hospitalist Vero and discussed case. Palliative Care will remain available. If PleurX drain is appropriate and placed then Pt and spouse will need education. Pt will also need to be sent home with PleurX starter kit.
[2021-01-30] MEDS ORDERED: FUROSEMIDE40 MG PO (18:07)
[2021-01-30] MEDS ORDERED: CONSTULOSE10 GM/155 PO (18:07)
[2021-01-30] MEDS ORDERED: SPIRONOLACTONE100 M3 PO (18:08)
--- NOTE | 2021-01-30 20:11 | NUR ---
CONSULT FOR PALLIATIVE CARE PLACED CONSULT BY YORDAN TO PALLIATIVE CARE
[2021-01-30 20:24] LABS: International Normalized Ratio 1.5; Prothrombin Time Results 15.8 Sec (9.7-11.5)
--- NOTE | 2021-01-31 00:30 | NUR ---
COMFORT CARE C/O BEING COLD; GIVEN WARM BLANKET. PLACED ANOTHER EXTRA BLANKET ON. TURNED HEATER UP ALL THE WAY AND CLOSED THE DOOR. A/O, ABLE TO MAKE NEEDS KNOWN. COOPERATIVE WITH CARE. CALLS APPROPRIATELY. NO OTHER NEEDS AT THIS TIME. BED IN LOWEST POSITION. CALL LIGHT AND BELONGINGS WITHIN REACH. CONTINUE WITH CURRENT PLAN OF CARE
--- NOTE | 2021-01-31 02:30 | NUR ---
COMFORT CARE STATES NO NEEDS AT THIS TIME. BED REMAINS IN LOWEST POSITION. CALL LIGHT AND BELONGINGS WITHIN REACH. CONTINUE WITH CURRENT PLAN OF CARE.
--- NOTE | 2021-01-31 05:11 | NUR ---
SHIFT SUMMARY ARRIVED TO MEDICAL FLOOR VIA [employer] / [employer] @ 1681; ASSISTANCE REQUIRED FOR TRANSFER TO BED FROM [facility]. RECIEVED REPORT FROM BREANN ZARATE RN. PT ORIENTED TO ROOM AND CALL SYSTEM. A/O X3, ABLE TO MAKE NEEDS KNOWN. COOPERATIVE WITH CARE. CALLS AND ANSWERS QUESTIONS APPROPRIATLEY. NO C/O PAIN/DISCOMFORT. APPEARED TO REST VERY LITTLE OVERNIGHT, APPROX 2-3 HOURS. NO ACUTE CHANGES AT THIS TIME. BED REMAINS IN LOWEST POSITION. CALL LIGHT AND BELONGINGS WITHIN REACH. CONTINUE WITH CURRENT PLAN OF CARE. REPORT TO ONCTONA RN.
[2021-01-31 10:41] LABS: SARS-Cov-2 (COVID-19) PCR, MMC NEGATIVE (NEGATIVE)
--- NOTE | 2021-01-31 14:05 | NUR ---
INTO [facility] VIA GURNEY FROM [facility] FLOOR ROOM. History, Chart, Medications and Allergies reviewed before start of procedure.Patient confirms NPO status and agrees with scheduled surgery. Surgical site prepped with 2% Chlorhexidine cloth wipe. BILATERAL WHEEZES NOTED THROUGHOUT LOBES
--- NOTE | 2021-01-31 15:21 | NUR ---
01/31/21 1521 [facility],[place] PLEURX PLEURAL CATHETER KIT PLACED TO RIGHT SIDE ABDOMEN. LOT# [id number]
--- NOTE | 2021-01-31 18:49 | NUR ---
PATIENT DISCHARGE: PATIENT DISCHARGED TO HOME ON HOSPICE THIS SHIFT. MEDICATION RECONCILIATION COMPLETED; MED LIST FAXED TO [facility]. DISCHARGE EDUCATION COMPLETED WITH PATIENT AND FAMILY. PATIENT TRANSPORTED TO EXIT BY [facility] STAFF WITH WHEELCHAIR. PATIENT DEPARTED [facility] VIA PRIVATE AUTO.
== END 2021-01-31 18:18 | disposition hospice, home (50) ==
LOC: ER 14:32 → MEDS 14:33
PROVIDERS: Emergency Medicine; Nurse Practitioner Acute Care; Surgery; ADMIT Internal Medicine
DX: K74.60 Unspecified cirrhosis of liver (principal); R18.8 Other ascites; N17.9 Acute kidney failure, unspecified; E87.1 Hypo-osmolality and hyponatremia; K72.90 Hepatic failure, unspecified without coma; K76.6 Portal hypertension; I12.9 Hypertensive chronic kidney disease with stage 1 through stage 4 chronic kidney disease, or unspecified chronic kidney disease; N18.9 Chronic kidney disease, unspecified; E78.5 Hyperlipidemia, unspecified; Z66 Do not resuscitate; I25.10 Atherosclerotic heart disease of native coronary artery without angina pectoris; Z95.1 Presence of aortocoronary bypass graft; Z95.5 Presence of coronary angioplasty implant and graft; Z20.822 Contact with and (suspected) exposure to COVID-19; Z79.899 Other long term (current) drug therapy
CPT/HCPCS: 36415; 80053; 83690; 84484; 85025; 85610; 85730; 86140; 93005; 93010; 96361; 96365; 96375; 99285-25; A9270; C1729; G0378; J0690; J1100; J2370; J2405; J2704; J3010; J7030; J7120; P9045; U0004